=== PATIENT | female | born 1980 | race Caucasian/White ===

== ENCOUNTER 2016-10-14 11:05 | Emergency (ER) | payer SELFPAY ==
[~2016-10-14] VITALS: Ht 165.1 cm; Wt 76.8 kg
[2016-10-14 12:24] LABS: microscopic required? NO
[2016-10-14 12:33] LABS: BASOPHIL % 0.5 % (0-2); PLATELET COUNT 263 x10^3mcL (130-400)
[2016-10-14 12:37] LABS: CALCIUM 8.8 mg/dL (8.5-10.1); CARBON DIOXIDE 29.7 mmol/L (21-32); CHLORIDE SERUM 103 mmol/L (98-107); CREATININE SERUM 0.9 mg/dL (0.6-1.0); GFR1 > 60 mL/min; GLUCOSE SERUM 96 mg/dL (74-106); POTASSIUM SERUM 4.2 mmol/L (3.5-5.1); SODIUM SERUM 139 mmol/L (136-145)
[2016-10-14 12:40] LABS: RED CELL DISTRIBUTION WIDTH 15.5 % (11.5-14.5)
[2016-10-14 12:41] LABS: ALBUMIN 3.7 g/dL (3.4-5.0); ALKALINE PHOSPHATASE 65 U/L (46-116); ALT/SGPT 19 U/L (14-59); AMYLASE 59 U/L (25-115); AST/SGOT 14 U/L (15-37); BILIRUBIN TOTAL 0.3 mg/dL (0.20-1.00); LIPASE 338 IU/L (73-393); TOTAL PROTEIN, SERUM 7.2 g/dL (6.4-8.2)
[2016-10-14 12:52] LABS: UA SPECIFIC GRAVITY >=1.030 (1.005-1.035); urine erythrocyte NEGATIVE (NEGATIVE)
[2016-10-14 14:02] VITALS: BP 130/80
== END 2016-10-14 15:07 | disposition home or self-care (01) ==
LOC: ED 11:05
PROVIDERS: Emergency Medicine
DX: R10.13 Epigastric pain (principal); R10.12 Left upper quadrant pain; R19.7 Diarrhea, unspecified
CPT/HCPCS: J1885; J2405; J3490; Q0092

== ENCOUNTER 2016-12-21 20:05 | Emergency (ER) | payer SELFPAY ==
[2016-12-21 21:42] LABS: BASOPHIL % 0.8 % (0-2); PLATELET COUNT 333 x10^3mcL (130-400)
[2016-12-21 21:46] LABS: RED CELL DISTRIBUTION WIDTH 15.6 % (11.5-14.5)
[2016-12-21 21:53] LABS: CALCIUM 8.6 mg/dL (8.5-10.1); CARBON DIOXIDE 28.5 mmol/L (21-32); CHLORIDE SERUM 104 mmol/L (98-107); CREATININE SERUM 0.9 mg/dL (0.6-1.0); GFR1 > 60 mL/min; GLUCOSE SERUM 90 mg/dL (74-106); SODIUM SERUM 137 mmol/L (136-145)
[2016-12-21 21:56] LABS: ALBUMIN 3.6 g/dL (3.4-5.0); ALKALINE PHOSPHATASE 66 U/L (46-116); ALT/SGPT 21 U/L (14-59); AMYLASE 56 U/L (25-115); AST/SGOT 14 U/L (15-37); BILIRUBIN TOTAL 0.2 mg/dL (0.20-1.00); LIPASE 271 IU/L (73-393); TOTAL PROTEIN, SERUM 7.3 g/dL (6.4-8.2)
[2016-12-21 22:48] VITALS: BP 120/71
== END 2016-12-21 22:48 | disposition home or self-care (01) ==
LOC: ED 20:05
PROVIDERS: Emergency Medicine
DX: A08.4 Viral intestinal infection, unspecified (principal); D50.9 Iron deficiency anemia, unspecified
CPT/HCPCS: 83880; J1885; J2405; J2765; J7030

== ENCOUNTER 2017-07-13 20:24 | Emergency (ER) | payer SELFPAY ==
[~2017-07-13] VITALS: Ht 167.6 cm; Wt 77.1 kg
[2017-07-13 20:35] VITALS: Ht 167.6 cm; Wt 77.1 kg
[2017-07-13 23:18] VITALS: BP 115/74
== END 2017-07-13 23:19 | disposition home or self-care (01) ==
LOC: ED 20:24
DX: R10.84 Generalized abdominal pain (principal)
CPT/HCPCS: J1885

== ENCOUNTER 2017-09-08 14:40 | Emergency (ER) | payer SELFPAY ==
[~2017-09-08] VITALS: Ht 165.1 cm; Wt 79.6 kg
[2017-09-08 16:31] VITALS: BP 121/70
== END 2017-09-08 16:31 | disposition home or self-care (01) ==
LOC: ED 14:40
DX: S63.501A Unspecified sprain of right wrist, initial encounter (principal); X58.XXXA Exposure to other specified factors, initial encounter; Y93.89 Activity, other specified; Y92.89 Other specified places as the place of occurrence of the external cause; Y99.8 Other external cause status

== ENCOUNTER 2019-01-11 21:07 | Emergency (ER) | payer OTHER ==
[~2019-01-11] VITALS: Ht 165.1 cm; Wt 79.1 kg
[2019-01-11 21:11] VITALS: Ht 165.1 cm; Wt 79.1 kg
[2019-01-11 23:42] VITALS: BP 127/75
== END 2019-01-11 23:42 | disposition home or self-care (01) ==
LOC: ED 21:07
DX: S93.401A Sprain of unspecified ligament of right ankle, initial encounter (principal); W22.8XXA Striking against or struck by other objects, initial encounter; Y93.89 Activity, other specified; Y92.89 Other specified places as the place of occurrence of the external cause; Y99.8 Other external cause status